=== PATIENT | male | born 1950 | race Caucasian/White ===

== ENCOUNTER 2016-08-10 10:55 | Emergency (ER) | payer MEDICARE ==
--- NOTE | 2016-08-10 11:52 | RAD ---
EXAM DESCRIPTION: XR CHEST 2 VIEWS 08/10/2016 CLINICAL HISTORY: 65 y/o , M, sob COMPARISON: None. FINDINGS: There are moderate emphysematous changes throughout the lungs bilaterally with flattening of the diaphragms and increased retrosternal clear space. The lungs are clear without focal consolidation or pleural effusion. The heart is normal in size. The mediastinal contours are normal in appearance. There are vascular calcifications along the aortic arch. The osseous structures are age appropriate. The upper abdomen is grossly normal. IMPRESSION: 1. No acute cardiopulmonary disease. 2. Moderate emphysema. Electronically signed by: Ross Wakefield MD 08/10/2016 11:50
--- NOTE | 2016-08-10 13:16 | ED.PDOC ---
History of Present Illness - General Chief Complaint: Respiratory Problem Time Seen by Provider: 08/10/16 11:28 Source: patient Exam Limitations: no limitations - History of Present Illness Initial Comments: the patient is a 65-year-old male brought inby his family to the emergency room secondary to coughing for the last 2-3 days. No fevers. Minimally productive sputum. He does have a history of COPD and does still smoke. No shortness of breath. No syncope or near syncope. No palpitations. No swelling. No chest pain. Mainly just a rattling cough. Timing/Duration: unsure Severity: mild Improving Factors: nothing Worsening Factors: nothing Associated Symptoms: cough, malaise Allergies/Adverse Reactions: Allergies NO KNOWN ALLERGY Allergy (Verified 06/26/15 13:45) Home Medications: Ambulatory Orders Carvedilol 25 mg PO BID 06/26/15 Gabapentin [Neurontin] 300 mg PO BEDTIME 06/26/15 Memantine HCl-Donepezil HCl [Namzaric 28-10 mg] 1 cap PO DAILY 06/26/15 Pravastatin Sodium 40 mg PO DAILY 06/26/15 Triamterene & Hydrochlorothiaz [Dyazide 37.5-25 mg] 1 cap PO DAILY 06/26/15 Amitriptyline HCl 10 mg PO BEDTIME 08/10/16 Azithromycin 500 mg PO DAILY #5 tab 08/10/16 Diclofenac Potassium 50 mg PO BID 08/10/16 Donepezil HCl [Aricept] 10 mg PO DAILY 08/10/16 Ipratropium/Albuterol Inhaler [Combivent Respimat 20-100 Mcg/Act] 2 puff INH RTQID #1 inh 08/10/16 predniSONE [Prednisone] 20 mg PO DAILY #3 tab 08/10/16 Review of Systems - Review of Systems Constitutional: States: malaise EENTM: States: nose congestion Respiratory: States: cough Cardiology: States: no symptoms reported Gastrointestinal/Abdominal: States: no symptoms reported Genitourinary: States: no symptoms reported Musculoskeletal: States: no symptoms reported Skin: States: no symptoms reported Neurological: States: no symptoms reported Endocrine: States: no symptoms reported All other Systems: No Change from Baseline Past Medical History (General) - Patient Medical History Hx Seizures: No Hx Stroke: No Hx Dementia: Yes Hx Asthma: No Hx of COPD: Yes Hx Cardiac Disorders: Yes Hx Congestive Heart Failure: No Hx Pacemaker: No Hx Hypertension: Yes Hx Thyroid Disease: No Hx Diabetes: No Hx Gastroesophageal Reflux: No Hx Renal Disease: No Hx of HIV: No Hx Hepatitis C: Yes Hx MRSA: No Surgical History: other - Vaccination History Hx Influenza Vaccination: Yes Hx Pneumococcal Vaccination: Yes - Social History Hx Tobacco Use: Yes - Triage Comment ED Triage Comment: Patient in no respiratory distress on arrival to the emergency department Family Medical History - Family History Mother Family History: Unknown Physical Exam - Physical Exam General Appearance: Alert, Comfortable, No apparent distress Eye Exam: bilateral normal Ears, Nose, Throat: normal pharynx, nasal congestion Neck: full range of motion, supple Respiratory: other - the patient does have coarse rhonchi bilaterally but does have good air movement. No significant accessory muscle use. No hypoxia. No respiratory distress. Cardiovascular/Chest: normal peripheral pulses, regular rate, rhythm, no edema Peripheral Pulses: radial,right: 2+, radial,left: 2+, dorsalis pedis,right: 2+, dorsalis pedis,left: 2+ Gastrointestinal/Abdominal: normal bowel sounds, non tender, soft Rectal Exam: deferred Back Exam: normal inspection, no CVA tenderness Extremity: normal range of motion, non-tender, normal inspection, no pedal edema , normal capillary refill Neurologic: alert, normal mood/affect, oriented x 3 Skin Exam: normal color Comments: Vital Signs - 24 hr 08/10/16 11:55 Temperature 95.7 F L Pulse Rate [ 61 Apical] Respiratory 20 Rate Blood Pressure 127/77 [Left Arm] O2 Sat by Pulse 97 Oximetry Progress - Progress Progress: 08/10/16 13:17 The patient is a 65-year-old male that appears to be undergoing amild COPD exacerbation primarily in the form of acute bronchitis. The patient will be placed on oral steroids for 3 days and azithromycin for 5 days and we will add a Combivent inhaler for use for the next 2 weeks. ER warnings were given for any worsening. He does also have mild acute renal failure as well as some very mild hyperkalemia likely due to his triamterene. He needs to reduce that daily use down to twice weekly, several days apart. He needs to follow-up with his primary care doctor for reevaluation of his renal function in 2 weeks. He needs to increase his fluid intake. - Results/Orders Results/Orders: Laboratory Tests 08/10/16 11:47 WBC 7.0 RBC 4.54 L Hgb 13.6 L Hct 40.7 L MCV 89.6 MCH 29.9 MCHC 33.4 RDW 13.3 Plt Count 170 MPV 9.0 Absolute Neuts (auto) 3.40 Absolute Lymphs (auto) 2.40 Absolute Monos (auto) 0.60 Absolute Eos (auto) 0.50 H Absolute Basos (auto) 0.10 Neutrophils % 48.7 Lymphocytes % 34.7 Monocytes % 9.1 H Eosinophils % 6.6 H Basophils % 0.9 Sodium 136 Potassium 5.2 H Chloride 104 Carbon Dioxide 24 Anion Gap 13.2 BUN 30 H Creatinine 1.94 H BUN/Creatinine Ratio 15.5 Random Glucose 93 Serum Osmolality 277.8 Calcium 9.2 Total Bilirubin 0.4 AST 28 ALT 29 Alkaline Phosphatase 71 Creatine Kinase 56 CK-MB (CK-2) 1.2 CK-MB (CK-2) % Not Reportable Troponin I < 0.02 B-Natriuretic Peptide 135.0 H Serum Total Protein 7.7 Albumin 4.4 Globulin 3.3 Albumin/Globulin Ratio 1.3 chest x-ray shows COPD but no definitive infiltrate. Departure - Departure Clinical Impression: Bronchitis, chronic obstructive w acute bronchitis Disposition: Discharge to Home or Self Care Condition: Fair Departure Forms: ED Discharge - Pt. Copy, Patient Portal Self Enrollment Instructions: DI for Chronic Obstructive Pulmonary Disease Diet: regular diet Activity: increase activity as tolerated Referrals: Jesus Davis MD [Primary Care Provider] - 1-2 Weeks Prescriptions: Azithromycin 500 mg PO DAILY #5 tab Ipratropium/Albuterol Inhaler [Combivent Respimat 20-100 Mcg/Act] 2 puff INH RTQID #1 inh predniSONE [Prednisone] 20 mg PO DAILY #3 tab Home Medications: Ambulatory Orders Carvedilol 25 mg PO BID 06/26/15 Gabapentin [Neurontin] 300 mg PO BEDTIME 06/26/15 Memantine HCl-Donepezil HCl [Namzaric 28-10 mg] 1 cap PO DAILY 06/26/15 Pravastatin Sodium 40 mg PO DAILY 06/26/15 Triamterene & Hydrochlorothiaz [Dyazide 37.5-25 mg] 1 cap PO DAILY 06/26/15 Amitriptyline HCl 10 mg PO BEDTIME 08/10/16 Azithromycin 500 mg PO DAILY #5 tab 08/10/16 Diclofenac Potassium 50 mg PO BID 08/10/16 Donepezil HCl [Aricept] 10 mg PO DAILY 08/10/16 Ipratropium/Albuterol Inhaler [Combivent Respimat 20-100 Mcg/Act] 2 puff INH RTQID #1 inh 08/10/16 predniSONE [Prednisone] 20 mg PO DAILY #3 tab 08/10/16 Additional Instructions: The patient is a 65-year-old male that appears to be undergoing amild COPD exacerbation primarily in the form of acute bronchitis. The patient will be placed on oral steroids for 3 days and azithromycin for 5 days and we will add a Combivent inhaler for use for the next 2 weeks. ER warnings were given for any worsening. He does also have mild acute renal failure as well as some very mild hyperkalemia likely due to his triamterene. He needs to reduce that daily use down to twice weekly, several days apart. He needs to follow-up with his primary care doctor for reevaluation of his renal function in 2 weeks. He needs to increase his fluid intake.He also needs to stop smoking of course.
[2016-08-10 14:14] VITALS: BP 118/83; TEMP 96; O2SAT 95
== END 2016-08-10 14:12 | disposition home or self-care (01) ==
LOC: ER 10:55
DX: J44.0 Chronic obstructive pulmonary disease with (acute) lower respiratory infection (principal); J20.9 Acute bronchitis, unspecified; F17.200 Nicotine dependence, unspecified, uncomplicated; Z79.899 Other long term (current) drug therapy; F03.90 Unspecified dementia, unspecified severity, without behavioral disturbance, psychotic disturbance, mood disturbance, and anxiety; I10 Essential (primary) hypertension; Z86.19 Personal history of other infectious and parasitic diseases; E87.5 Hyperkalemia; N19 Unspecified kidney failure

== ENCOUNTER → 2016-12-20 | Outpatient (CLI) | payer MEDICARE | LOC: GMAJ 13:45 | PROVIDERS: ATTEND Family Medicine | DX: F03.90 Unspecified dementia, unspecified severity, without behavioral disturbance, psychotic disturbance, mood disturbance, and anxiety (principal); D64.9 Anemia, unspecified; R53.82 Chronic fatigue, unspecified; M89.9 Disorder of bone, unspecified; R41.82 Altered mental status, unspecified ==

== ENCOUNTER → 2017-05-30 | Outpatient (CLI) | payer MEDICARE ==
--- NOTE | 2017-06-02 06:57 | US ---
Procedure: US CAROTID DOPPLER BILATERAL Exam Date: 05/30/2017 12:00 AM CDT Ordering Provider: MAGGIE RIOS MD Clinical Indication: STENOSIS Comparison: None TECHNIQUE : Real-time cerebrovascular ultrasonography was obtained from sternal notch to the angle of the mandible bilaterally utilizing bartholomew scale, color flow and spectral Doppler analysis. Systolic velocity ratios were calculated for internal carotid artery to common carotid artery bilaterally. FINDINGS: RIGHT CAROTID BIFURCATION: No significant atherosclerotic plaque. Peak systolic and end-diastolic velocities in the right internal carotid artery are 62 and 14 cm/s. Internal carotid/common carotid ratio is 0.8. Right vertebral flow is antegrade. LEFT CAROTID BIFURCATION: No significant atherosclerotic plaque. Peak systolic and end-diastolic velocities in the left internal carotid artery are 62 and 19 cm/s. Internal carotid/common carotid ratio is 0.7. Left vertebral flow is antegrade. IMPRESSION: 1. No significant atherosclerotic plaque in each carotid bulb and ICA origin. 2. There is no significant stenosis (16-49%) at both ICA origins. 3. Bilateral antegrade vertebral artery flow. Electronically signed by: Nuno Yang MD 06/02/2017 6:56 AM [facility]
== END | disposition home or self-care (01) ==
LOC: US 11:26
PROVIDERS: ATTEND Family Medicine
DX: I65.22 Occlusion and stenosis of left carotid artery (principal)

== ENCOUNTER → 2017-07-30 | Outpatient (CLI) | payer MEDICARE | END | disposition home or self-care (01) | LOC: BFHH 13:20 | PROVIDERS: ATTEND Family Medicine | DX: N39.0 Urinary tract infection, site not specified (principal) ==